=== PATIENT | female | born 1975 | race Caucasian/White ===

== ENCOUNTER 2022-04-23 09:13 | Outpatient (CLI) | payer OTHER, BC, SELFPAY | END 2022-04-23 09:14 | disposition home or self-care (01) | LOC: AMB 04-27 12:49 | PROVIDERS: PCP Obstetrics & Gynecology; Visit Provider Family Medicine | DX: S09.90XA Unspecified injury of head, initial encounter (principal); V49.40XA Driver injured in collision with unspecified motor vehicles in traffic accident, initial encounter; Y92.410 Unspecified street and highway as the place of occurrence of the external cause | CPT/HCPCS: A0425; A0427 ==